=== PATIENT | male | born 1970 | race African-American/Black ===

== ENCOUNTER 2019-01-18 22:36 | Emergency (ER) | payer OTHER | END 2019-01-19 00:32 | disposition home or self-care (01) | LOC: FER 01-19 00:32 ==

== ENCOUNTER 2021-06-04 19:17 | Emergency (ER) | payer OTHER ==
[2021-06-04 19:23] VITALS: BP 112/72; PULSE 68; TEMP 97.8; BMI 28.1
[2021-06-04] MEDS ORDERED: IBUPROFEN 600 MG TABLET (FP) PO ONE ×2 (19:48→19:52)
[2021-06-04] MEDS ORDERED: METHOCARBAMOL 500 MG TABLET PO ONE (19:48)
[2021-06-04] MEDS ORDERED: METHOCARBAMOL 500 MG TABLET ONE (19:51)
== END 2021-06-04 20:05 | disposition home or self-care (01) ==
LOC: JERFT 19:17
DX: M54.50 Low back pain, unspecified (principal); V43.52XA Car driver injured in collision with other type car in traffic accident, initial encounter
CPT/HCPCS: 99283-25

== ENCOUNTER 2021-07-08 02:20 | Emergency (ER) | payer OTHER ==
[2021-07-08] MEDS ORDERED: ACETAMINOPHEN 325 MG TABLET (FP) PO ONE (03:19)
[2021-07-08 03:22] VITALS: BP 104/71; BMI 25.1
[2021-07-08] MEDS ORDERED: IBUPROFEN 600 MG TABLET (FP) PO ONE ×2 (03:23→03:24)
[2021-07-08 05:36] VITALS: PULSE 78; TEMP 99.3
== END 2021-07-08 05:36 | disposition home or self-care (01) ==
LOC: JER 02:20
DX: J09.X2 Influenza due to identified novel influenza A virus with other respiratory manifestations (principal)
CPT/HCPCS: 71046-TC-FY; 87804; 99284-25; C9803; U0003; U0005